=== PATIENT | female | born 1980 | race Caucasian/White ===

== ENCOUNTER → 2018-04-22 | Outpatient (CLI) | payer OTHER, SELFPAY ==
[~2018-04-22] MED LIST: FLEXERIL PO; LYRICA PO; ZOLOFT PO
[2018-04-22 16:13] LABS: MICROSCOPIC AUTO
[2018-04-22 16:13] LABS: BASOPHILS # (AUTO) 0.17 x10^3/uL (0-0.1); BASOPHILS % (AUTO) 1 % (0-1); EOSINOPHILS % (AUTO) 1 % (1-7); LYMPHOCYTES # (AUTO) 4.02 x10^3/uL (1-3.4); LYMPHOCYTES % (AUTO) 27 % (22-44); MD NO; MEAN CORPUSCULAR HEMOGLOBIN 33.4 pg (27.0-34.8); MEAN CORPUSCULAR HGB CONC 34.4 g/dL (32.4-35.8); MEAN CORPUSCULAR VOLUME 97.3 fL (80-100); MEAN PLATELET VOLUME 7.9 fL (7.4-10.4); MONOCYTES # (AUTO) 0.79 x10^3/uL (0.2-0.8); MONOCYTES % (AUTO) 5 % (2-9); NEUTROPHILS % (AUTO) 66 % (42-75); PLATELET COUNT 379 x10^3/uL (130-400); RED BLOOD COUNT 4.39 x10^6/uL (3.82-5.3); RED CELL DISTRIBUTION WIDTH 13.2 % (9.6-15.2)
[2018-04-22 16:19] LABS: CULTURE INDICATED? YES
[2018-04-22 16:23] LABS: ANION GAP 6 mmol/L (5-15); CALCIUM 8.3 mg/dL (8.5-10.1); CHLORIDE 107 mmol/L (98-107); CREATININE 0.82 mg/dL (0.55-1.02)
[2018-04-22 16:45] LABS: INTERNATIONAL NORMALIZED RATIO 0.94 (0.93-1.1); PROTHROMBIN TIME 9.7 Seconds (9.6-11.5)
== END | disposition home or self-care (01) ==
LOC: STAR 15:22
PROVIDERS: ATTEND Neurological Surgery
DX: Z01.818 Encounter for other preprocedural examination (principal); M51.26 Other intervertebral disc displacement, lumbar region; M47.817 Spondylosis without myelopathy or radiculopathy, lumbosacral region; M53.2X6 Spinal instabilities, lumbar region
CPT/HCPCS: 36415; 71046; 72110; 80048; 81001; 85025; 85610; 85730; 87086; 93005

== ENCOUNTER 2018-04-29 09:52 | Day surgery (SDC) | payer OTHER ==
[~2018-04-29] VITALS: Ht 167.6 cm; Wt 75.4 kg
[~2018-04-29 09:52] MED LIST changes: +BACITRACIN 50,000 UNIT ONE; +BUPIVACAINE/PF-EPI 0.5% 1:200K ONE; +THROMBIN 5,000 UNIT VIAL TP ONE
[2018-04-29] MEDS ORDERED: LACTATED RINGERS 1,000 ML IV SCH (10:16)
[2018-04-29] MEDS ORDERED: CYCL-259 PO (10:20)
[2018-04-29] MEDS ORDERED: DICL75TA2 PO (10:20)
[2018-04-29] MEDS ORDERED: SERT50TA PO (10:20)
[2018-04-29] MEDS ORDERED: PREG75CA PO (10:20)
[2018-04-29] MEDS ORDERED: DIAZEPAM 5 MG TABLET PO ONE (10:30)
[2018-04-29] MEDS ORDERED: OXYcodone IR 5MG TABLET PO ONE (10:30)
[2018-04-29] MEDS ORDERED: ACETAMINOPHEN 500 MG TABLET PO ONE (10:30)
[2018-04-29 10:42] VITALS: BP 109/76
[2018-04-29] MEDS ORDERED: MIDAZOLAM 1 MG/ML, 2ML ONE (12:57)
[2018-04-29] MEDS ORDERED: FENTANYL PF 250 MCG/5ML ONE (12:57)
[2018-04-29] MEDS ORDERED: PROPOFOL 10 MG/ML, 20ML ONE (13:33)
[2018-04-29] MEDS ORDERED: DEXAMETHASONE 4 MG/ML, 1ML ONE ×3 (13:33)
[2018-04-29] MEDS ORDERED: ROCURONIUM 10MG/ML,5ML ONE (13:33)
[2018-04-29] MEDS ORDERED: ONDANSETRON 2MG/ML, 2ML ONE ×2 (13:33→15:10)
[2018-04-29] MEDS ORDERED: CEFAZOLIN 1,000 MG ONE ×2 (13:35)
[2018-04-29] MEDS ORDERED: FENTANYL PF 100 MCG/2ML IV PRN (14:00)
[2018-04-29] MEDS ORDERED: LABETALOL 5MG/ML, 20ML IV PRN (14:00)
[2018-04-29] MEDS ORDERED: ONDANSETRON 2MG/ML, 2ML IV PRN (14:00)
[2018-04-29] MEDS ORDERED: MORPHINE SULFATE 4 MG/ML, 1ML IVPush PRN (14:00)
[2018-04-29] MEDS ORDERED: OXYcodone 5 MG/5 ML ORAL.SOL UDC PO PRN (14:00)
[2018-04-29] MEDS ORDERED: MEPERIDINE/PF 25MG/0.5ML IVPush PRN (14:00)
[2018-04-29] MEDS ORDERED: MIDAZOLAM 1 MG/ML, 2ML IV PRN (14:00)
[2018-04-29] MEDS ORDERED: BUPIVACAINE/PF-EPI 0.5% 1:200K ONE (14:00)
[2018-04-29] MEDS ORDERED: VANCOMYCIN 500 MG ONE (14:00)
[2018-04-29] MEDS ORDERED: FENTANYL PF 100 MCG/2ML ONE (15:07)
[2018-04-29] MEDS ORDERED: OXYcodone 5 MG/5 ML ORAL.SOL UDC ONE (15:07)
== END 2018-04-29 16:05 | disposition home or self-care (01) ==
LOC: OUT 09:52
PROVIDERS: ATTEND Neurological Surgery
DX: M48.061 Spinal stenosis, lumbar region without neurogenic claudication (principal); M51.26 Other intervertebral disc displacement, lumbar region; M54.16 Radiculopathy, lumbar region; F41.9 Anxiety disorder, unspecified; F32.9 Major depressive disorder, single episode, unspecified; F17.210 Nicotine dependence, cigarettes, uncomplicated; Z90.710 Acquired absence of both cervix and uterus; Z98.890 Other specified postprocedural states; Z88.5 Allergy status to narcotic agent; Z88.8 Allergy status to other drugs, medicaments and biological substances
CPT/HCPCS: 63030; 63035; 72100; J0690; J1100; J2250; J2405; J2704; J3010; J3370; J7120

== ENCOUNTER 2018-05-07 05:49 | Emergency (ER) | payer OTHER ==
[~2018-05-07] VITALS: Ht 167.6 cm; Wt 76.3 kg
[~2018-05-07 05:49] MED LIST changes: -BACITRACIN 50,000 UNIT ONE; -BUPIVACAINE/PF-EPI 0.5% 1:200K ONE; +CYCL-259 PO; +DICL75TA2 PO; +PREG75CA PO; +SERT50TA PO; -THROMBIN 5,000 UNIT VIAL TP ONE
[2018-05-07] MEDS ORDERED: ACETAMINOPHEN 325 MG TABLET ONE (06:12)
[2018-05-07 06:29] LABS: BASOPHILS # (AUTO) 0.05 x10^3/uL (0-0.1); BASOPHILS % (AUTO) 0 % (0-1); EOSINOPHILS # (AUTO) 0.31 x10^3/uL (0-0.4); EOSINOPHILS % (AUTO) 2 % (1-7); LYMPHOCYTES # (AUTO) 2.68 x10^3/uL (1-3.4); LYMPHOCYTES % (AUTO) 19 % (22-44); MD NO; MEAN CORPUSCULAR HEMOGLOBIN 33.2 pg (27.0-34.8); MEAN CORPUSCULAR HGB CONC 34.2 g/dL (32.4-35.8); MEAN PLATELET VOLUME 7.4 fL (7.4-10.4); MONOCYTES # (AUTO) 0.61 x10^3/uL (0.2-0.8); MONOCYTES % (AUTO) 4 % (2-9); NEUTROPHILS # (AUTO) 10.75 x10^3/uL (1.8-6.8); NEUTROPHILS % (AUTO) 75 % (42-75); PLATELET COUNT 306 x10^3/uL (130-400); RED BLOOD COUNT 4.27 x10^6/uL (3.82-5.3); RED CELL DISTRIBUTION WIDTH 12.1 % (9.6-15.2)
[2018-05-07] MEDS ORDERED: ACETAMINOPHEN 325 MG TABLET PO ONE (06:30)
[2018-05-07 06:44] LABS: ALBUMIN 3.6 g/dL (3.4-5.0); ANION GAP 6 mmol/L (5-15); CHLORIDE 112 mmol/L (98-107); CREATININE 0.69 mg/dL (0.55-1.02)
[2018-05-07 09:11] VITALS: BP 105/71
== END 2018-05-07 09:13 | disposition home or self-care (01) ==
LOC: ED 09:00
DX: M54.5 Low back pain (principal); D72.829 Elevated white blood cell count, unspecified
CPT/HCPCS: 36415; 72131; 80048; 82040; 84703; 85025; 99285